=== PATIENT | male | born 1955 | race Caucasian/White ===

== ENCOUNTER 2019-02-05 08:21 | Outpatient (CLI) | payer OTHER ==
--- NOTE | 2019-02-05 09:58 | HP ---
HISTORY OF PRESENT ILLNESS: Mr. Lenin Morales is a very pleasant 63-year-old gentleman, who presents [facility] for evaluation of 2 wounds of the right lower extremity. The wound of the right lower leg began in early October of last year after the patient ran into a #10 tub filled with water at night. The patient states that 1 week later he dropped an object onto his foot resulting in an ulceration over the dorsum of the right foot. The patient states that he was seen by Dr. Grant and placed on a course of ciprofloxacin. At this time, the patient was referred to the [facility]ound Center for further evaluation and treatment. PAST MEDICAL HISTORY: 1. Diabetes mellitus. 2. Hypertension. 3. Thyroid disorder. PAST SURGICAL HISTORY: Negative. MEDICATIONS: 1. Humulin 70/30. 2. Metformin. 3. Lovastatin. 4. Jardiance. 5. Levothyroxine. 6. Ciprofloxacin. ALLERGIES: NO KNOWN DIAGNOSED ALLERGIES. SOCIAL HISTORY: Social history is negative for tobacco or EtOH use. FAMILY HISTORY: Family history is significant for diabetes mellitus. The patient states that his father and brother were both diagnosed with diabetes mellitus. Family history is also significant for coronary artery disease. The patient states that his father was diagnosed with coronary artery disease. PHYSICAL EXAMINATION: VITAL SIGNS: Stable, afebrile. GENERAL: A 63-year-old gentleman, sitting on chair in examination room, in no acute distress. HEENT: Normocephalic, atraumatic. NECK: No nuchal rigidity. CHEST: Clear to auscultation. CARDIOVASCULAR: Regular rate and rhythm. ABDOMEN: Soft. EXTREMITIES: An ulceration over the right lower leg is present, which measures approximately 3.3 x 2.0 cm. Eschar is present over the wound. No purulent drainage is associated with the wound. No cellulitis of the right lower leg is appreciated. No maceration of the skin of the periwound is noted. A dorsalis pedis pulse is palpable on the right. No significant edema of the right lower extremity is appreciated on exam today. An ulceration over the dorsum of the right foot is present, which measures approximately 1.1 x 1.4 cm. Eschar is present over the wound. No purulent drainage is associated with the wound. No erythema of the skin surrounding the wound is present. No maceration of the skin of the periwound is noted. NEURO: Grossly nonfocal. ASSESSMENT AND PLAN: 1. Wounds of right lower extremity, as described above. Dressing changes of Medihoney, 4 x 4's, Kerlix, and Coban will be initiated today. These dressing changes are to be performed on a daily basis after cleansing and irrigation. The patient will be performing his own dressing changes. The patient is to continue ciprofloxacin as previously prescribed. I will see Mr. Morales again in 2 weeks. The patient understands and is in agreement with the preceding treatment plan. 2. Diabetes mellitus. The patient's Accu-Chek in clinic today is 107. The patient has been told that for optimal wound healing his blood glucoses should remain below 150. 3. Hypertension. 4. Hypothyroidism. Job ID: [id number]
[2019-02-05] MEDS ORDERED: Sodium Chloride 0.9% 15 ML NEB ONE (18:00)
== END 2019-02-05 08:22 | disposition home or self-care (01) ==
LOC: WCC 08:21
PROVIDERS: ATTEND Family Medicine
DX: S81.801D Unspecified open wound, right lower leg, subsequent encounter (principal); I10 Essential (primary) hypertension; E11.9 Type 2 diabetes mellitus without complications; E03.9 Hypothyroidism, unspecified
CPT/HCPCS: 97602; 99203; A4218; G0463

== ENCOUNTER 2019-02-19 07:57 | Outpatient (CLI) | payer OTHER ==
--- NOTE | 2019-02-19 09:24 | PRG ---
DATE OF SERVICE: 02/19/2019 HISTORY: Mr. Lenin Morales is a very pleasant 64-year-old gentleman, who presents to the [facility] for evaluation of 2 wounds of the right lower extremity. The wound of the right lower leg began in early October of last year after the patient ran into a #10 tub filled with water at night. The patient stated that 1 week later he dropped an object on to his foot resulting in an ulceration over the dorsum of the right foot. The patient stated that he was seen by Dr. Grant and placed on a course of ciprofloxacin. At this time, the patient was referred to the [facility]ound Center for further evaluation and treatment. Since the patient's last visit, Mr. Morales has been receiving dressing changes of Medihoney. He states that the dressing changes of Medihoney are associated with pain, which is almost incapacitating. PHYSICAL EXAMINATION: VITAL SIGNS: Temperature 97.9, pulse 78, respirations 17, and blood pressure 196/104. EXTREMITIES: An ulceration over the right lower leg is present, which measures approximately 3.2 x 2.0 cm. The dimensions of the wound at the time of the patient's last visit were approximately 3.3 x 2.0 cm. Some eschar is present over the wound bed, but much less than at the time of the patient's last visit. No purulent drainage is associated with the wound. No cellulitis of the right lower leg is appreciated. No maceration of the skin of the periwound is noted. A dorsalis pedis pulse is palpable on the right. No significant edema of the right lower extremity is present on exam today. An ulceration over the dorsum of the right foot is present, which measures approximately 1.0 x 1.3 cm. The dimensions of the wound at the time of the patient's last visit were approximately 1.1 x 1.4 cm. No eschar is present over the wound bed, as was present at the time of the patient's last visit. No purulent drainage is associated with the wound. No erythema of the skin surrounding the wound is present. No maceration of the skin of the periwound is noted. LABORATORY DATA: Accu-Chek 79. ASSESSMENT AND PLAN: 1. Wounds of right lower extremity as described above. Dressing changes of PluroGel and gauze will be initiated today. Coban or paper tape will be utilized at the time of dressing changes as needed. These dressing changes are to be performed on a daily basis after cleansing and irrigation. The patient will continue to perform his own dressing changes. I will see Mr. Morales again in approximately 2 weeks. 2. Diabetes mellitus. The patient's Accu-Chek in clinic today is 79. The patient has been reminded that for optimal wound healing his blood glucoses should remain below 150. 3. Hypertension. 4. Hypothyroidism. Job ID: [id number]
[2019-02-19] MEDS ORDERED: Sodium Chloride 0.9% 15 ML NEB ONE (18:00)
== END 2019-02-19 07:58 | disposition home or self-care (01) ==
LOC: WCC 07:57
PROVIDERS: ATTEND Family Medicine
DX: E11.622 Type 2 diabetes mellitus with other skin ulcer (principal); L97.919 Non-pressure chronic ulcer of unspecified part of right lower leg with unspecified severity; I10 Essential (primary) hypertension; E03.9 Hypothyroidism, unspecified
CPT/HCPCS: A4218

== ENCOUNTER 2019-03-12 08:07 | Outpatient (CLI) | payer OTHER ==
[2019-03-12 09:18] LABS: Glucose 75 mg/dL (80-115)
--- NOTE | 2019-03-12 09:46 | PRG ---
DATE OF SERVICE: 03/12/2019 HISTORY: Mr. Lenin Morales is a very pleasant 64-year-old gentleman, who presents to the [facility] for evaluation of 2 wounds of the right lower extremity. The wound of the right lower leg began in early October of last year after the patient ran into a #10 tub filled with water at night. The patient stated that 1 week later he dropped an object onto his foot resulting in an ulceration over the dorsum of the right foot. The patient stated that he was seen by Dr. Grant and placed on a course of ciprofloxacin. At this time, the patient was referred to the Wound Center for further evaluation and treatment. Since the patient's last visit, Mr. Morales has been receiving dressing changes of PluroGel. He states that the dressing changes of PluroGel are less painful than the dressing changes of Medihoney. PHYSICAL EXAMINATION: VITAL SIGNS: Temperature 97.5, pulse 87, blood pressure 194/91. Accu-Chek 54. EXTREMITIES: An ulceration over the right lower leg is present which measures approximately 3.3 x 1.9 cm. The dimensions of the wound at the time of the patient's last visit were approximately 3.2 x 2.0 cm. Again, less eschar is present over the wound bed than at the time of the patient's last visit. No purulent drainage is associated with the wound. No cellulitis of the right lower leg is appreciated. No maceration of the skin of the periwound is noted. A dorsalis pedis pulse is palpable on the right. No significant edema of the right lower extremity is present on exam today. An ulceration over the dorsum of the right foot is present which measures approximately 0.8 x 1.1 cm. The dimensions of the wound at the time of the patient's last visit were approximately 1.0 x 1.3 cm. No purulent drainage is associated with the wound. No erythema of the skin surrounding the wound is present. No maceration of the skin of the periwound is noted. ASSESSMENT AND PLAN: 1. Wounds of right lower extremity as described above. Dressing changes of PluroGel and gauze will be continued on a daily basis after cleansing and irrigation. The patient will continue to perform his own dressing changes. Coban or paper tape will be utilized at the time of dressing changes as needed. I will see Mr. Morales again in 4 weeks. 2. Diabetes mellitus. The patient's Accu-Chek in clinic today is 54. The patient has been given orange juice. 3. Hypertension. 4. Hypothyroidism. Job ID: [id number]
[2019-03-12] MEDS ORDERED: Lidocaine 2% Jelly 5 ML TUBE ONE (14:56)
[2019-03-12] MEDS ORDERED: Sodium Chloride 0.9% 15 ML NEB ONE (14:56)
== END 2019-03-12 08:08 | disposition home or self-care (01) ==
LOC: WCC 08:07
PROVIDERS: ATTEND Family Medicine
DX: E11.621 Type 2 diabetes mellitus with foot ulcer (principal); L97.519 Non-pressure chronic ulcer of other part of right foot with unspecified severity; I10 Essential (primary) hypertension; E03.9 Hypothyroidism, unspecified
CPT/HCPCS: 36416; 82947

== ENCOUNTER 2019-04-09 08:44 | Outpatient (CLI) | payer OTHER ==
--- NOTE | 2019-04-09 09:51 | PRG ---
DATE OF SERVICE: 04/09/2019 HISTORY: Mr. Lenin Morales is a very pleasant 64-year-old gentleman, who presents to the [facility] for evaluation of 2 wounds of the right lower extremity. The wound of the right lower leg began in early October of last year after the patient ran into an #10 tub filled with water at night. The patient stated that 1 week later he dropped an object on to his foot resulting in ulceration over the dorsum of the right foot. The patient stated that he was seen by Dr. Grant and placed on a course of ciprofloxacin. At this time, the patient was referred to the Wound Center for further evaluation and treatment. Since the patient's last visit, Mr. Morales has been receiving dressing changes of PluroGel. He stated previously that the dressing changes of PluroGel are less painful than the dressing changes of Medihoney. Also since the patient's last visit, Mr. Morales states that he underwent stent placement x3 by Dr. Banuelos at [facility]. 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 PHYSICAL EXAMINATION: VITAL SIGNS: Temperature 98.4, pulse 88, respirations 20, and blood pressure 144/83. EXTREMITIES: An ulceration over the right lower leg is present, which measures approximately 3.5 x 1.8 cm. The dimensions of the wound at the time of the patient's last visit were approximately 3.3 x 1.9 cm. No purulent drainage is associated with the wound. No cellulitis of the right lower leg is appreciated. No maceration of the skin of the periwound is noted. A dorsalis pedis pulse is palpable on the right. No significant edema of the right lower extremity is present on exam today. An ulceration over the dorsum of the right foot is present, which measures approximately 0.7 x 1.2 cm. The dimensions of the wound at the time of the patient's last visit were approximately 0.8 x 1.1 cm. No purulent drainage is associated with the wound. No erythema of the skin surrounding the wound is present. No maceration of the skin of the periwound is noted. LABORATORY DATA: Accu-Chek 111. ASSESSMENT AND PLAN: 1. Wounds of right lower extremity as described above. Dressing changes of PluroGel and gauze will be continued on a daily basis after cleansing and irrigation. The patient will continue to perform his own dressing changes. Coban paper tape will be utilized at the time of dressing changes as needed. The patient states he will contact the clinic in order to schedule his next followup appointment. 2. Diabetes mellitus. The patient's Accu-Chek in clinic today is 111. The patient has been reminded that for optimal wound healing his blood glucoses should remain below 150. 3. Hypertension. 4. Hypothyroidism. Job ID: [id number]
[2019-04-09] MEDS ORDERED: Sodium Chloride 0.9% 15 ML NEB ONE ×2 (15:00)
[2019-04-09] MEDS ORDERED: Lidocaine 4% Topical Sol 50 ML BOT ONE (15:00)
[2019-04-09] MEDS ORDERED: Lidocaine 2% PF 100 mg/5 ml Syringe ONE (15:00)
== END 2019-04-09 08:45 | disposition home or self-care (01) ==
LOC: WCC 08:44
PROVIDERS: ATTEND Family Medicine
DX: E11.622 Type 2 diabetes mellitus with other skin ulcer (principal); L97.919 Non-pressure chronic ulcer of unspecified part of right lower leg with unspecified severity; I10 Essential (primary) hypertension; E03.9 Hypothyroidism, unspecified
CPT/HCPCS: 97602; A4218; J2001

== ENCOUNTER 2025-09-16 05:39 | Inpatient (IN) | payer MEDICARE ==
[2025-09-16] MEDS ORDERED: Famotidine/PF 20 mg/2ml Vial ONE (06:51)
[2025-09-16] MEDS ORDERED: CEFAZOLIN 2 GM VIAL ONE ×2 (06:51→18:50)
[2025-09-16] MEDS ORDERED: Lidocaine 2% 6 ML (Jelly) SYR ONE (06:58)
[2025-09-16] MEDS ORDERED: Lidocaine 1% PF 5 ML VIAL ONE (06:59)
[2025-09-16] MEDS ORDERED: PHENYLEPHRINE-NS 100 MCG/ML 10 ML SYRINGE ONE ×3 (06:59→10:55)
[2025-09-16] MEDS ORDERED: SUCCINYLCHOLINE/SOD CL,ISO/PF 200 MG/10 ML SYRINGE FS ONE (06:59)
[2025-09-16] MEDS ORDERED: fentaNYL PF 100 MCG/2 ML SYRINGE ONE (06:59)
[2025-09-16] MEDS ORDERED: Glycopyrrolate 0.2 MG/ML 5 ML SYRINGE ONE (06:59)
[2025-09-16] MEDS ORDERED: PROPOFOL 20 ML ONE (06:59)
[2025-09-16] MEDS ORDERED: Rocuronium Bromide 10 MG/ML (10ML VIAL) ONE (06:59)
[2025-09-16] MEDS ORDERED: Ondansetron PF 4 MG/2 ML Vial ONE (06:59)
[2025-09-16] MEDS ORDERED: Bupivacaine 0.25% HCL 30 ML VIAL ONE (07:06)
[2025-09-16] MEDS ORDERED: HYDROmorphone 2 MG/ML VIAL ONE (07:20)
[2025-09-16] MEDS ORDERED: Communication Order-Pharmacy FS SCH (11:30)
[2025-09-16] MEDS ORDERED: HYDROmorphone 0.5 MG/0.5 ML SYRINGE ONE ×4 (12:31→18:07)
[2025-09-16] MEDS: TETANUS, DIPHTHERIA TOX,ADULT (TDVAX) 0.5 ML VIAL IM ONE (20:06)
[2025-09-16] MEDS: HumuLIN 70/30 100 Unit/ml 10 ml Vial SC SCH (20:06)
[2025-09-16] MEDS: Ferrous Sulfate 325 MG TAB PO SCH (20:07)
[2025-09-16] MEDS: metFORMIN 500 MG TAB PO SCH (20:07)
[2025-09-16 20:11] VITALS: BMI 27.4
[2025-09-16] MEDS ORDERED: Non-Formulary Item 1 EACH (Cinnamon Bark [Cinnamon] 500 MG Capsule) PO SCH (21:00)
[2025-09-16] MEDS: HYDROcodone/Acetaminophen 10/325 mg Tablet PO PRN (21:36)
[2025-09-16] MEDS: Aspirin 81 mg Enteric Coated Tablet PO SCH (21:38)
[2025-09-16] MEDS ORDERED: Dextrose 50% Abboject 50 ML SYRINGE SLOW IVP PRN (22:31)
[2025-09-16] MEDS ORDERED: Glucagon 1 MG/ML KIT IM PRN (22:31)
[2025-09-18] MEDS: Acetaminophen 325 MG TAB PO PRN (01:19)
[2025-09-18 05:27] LABS: #Basophils 0.03 10x3/uL (0.0-0.2); #Eosinophils 0.19 10x3/uL (0.0-0.7); #Monocytes 1.48 10x3/uL (0.11-0.59); #Neutrophils 7.12 10x3/uL (1.40-6.50); %Basophils 0.3 % (0.0-1.0); %Eosinophils 1.8 % (0.0-10.0); %Lymphocytes 17.6 % (21.0-51.0); %Monocytes 13.8 % (0.0-10.0); %Neutrophils 66.2 % (42.0-75.0); Hematocrit 32.8 % (42.0-52.0); Hemoglobin 10.8 g/dL (14.0-18.0); Mean Corpuscular Hemoglobin 30.9 pg (27.0-31.0); Mean Corpuscular Volume 94.0 fL (78.0-98.0); Platelet Count 145 10x3/uL (130-400); Red Blood Cell (RBC) Count 3.49 mill/uL (4.70-6.10); White Blood Cell (WBC) Count 10.74 10x3/uL (4.8-10.8)
[2025-09-18 05:44] LABS: ALT (SGPT) 10 U/L (Less than 45); AST (SGOT) 21 U/L (11-34); Albumin 2.8 g/dL (3.1-4.5); Alkaline Phosphatase 45 U/L (40-110); Anion Gap 10 mmol/L (10-20); BUN (Urea Nitrogen) 11 mg/dL (8.4-25.7); Bilirubin, Total 0.5 mg/dL (0.3-1.2); Calc. Creatinine Clearance 91 mL/min (70-130); Calcium 8.7 mg/dL (7.8-10.44); Carbon Dioxide 27 mmol/L (23-31); Chloride 105 mmol/L (98-107); Globulin 2.4 g/dL (2.4-3.5); Glucose 93 mg/dL (80-115); Potassium 4.0 mmol/L (3.5-5.1); Sodium 138 mmol/L (136-145)
[2025-09-18] MEDS ORDERED: Iopamidol 370 76% 100 ML VIAL ONE (08:11)
[2025-09-18 11:38] LABS: Free T4 (Free Thyroxine) 1.8 ng/dL (0.70-1.48); Thyroid Stimulating Hormone 0.4512 uIU/mL (0.35-4.94)
[2025-09-18] MEDS: Senokot 8.6 MG TAB PO SCH (12:12)
[2025-09-18 12:50] LABS: CAUTI Indications for Culture Fever or rigors; Glucose, Urine (Dipstick) Normal (Negative); Leukocyte 500 Leu/uL (Negative); Protein, Urine (Dipstick) 20 mg/dL (Neg-Trace); Specific Gravity, Urine 1.027 (1.002-1.036); WBC/HPF Greater than 50 HPF (0-3)
[2025-09-18 13:00] LABS: Bacteria/HPF 1+ HPF (None Seen)
[2025-09-18 13:02] LABS: Urine Culture Reflex Yes Yes
[2025-09-18] MEDS ORDERED: cefTRIAXone\\ROCEPHIN 2 GM in Sodium Chloride 0.9% 100 ML IVPB SCH (17:00)
[2025-09-18] MEDS: Azithromycin 500 MG in Sodium Chloride 0.9% 250 ML 250 ML IVPB SCH (17:01)
[2025-09-18] MEDS ORDERED: Simethicone Chewable 80 MG TAB PO PRN (18:21)
[2025-09-19] MEDS: cefTRIAXone\\ROCEPHIN 2 GM in Sodium Chloride 0.9% 100 ML IVPB SCH (00:27)
[2025-09-19 08:44] LABS: #Basophils 0.03 10x3/uL (0.0-0.2); #Eosinophils 0.10 10x3/uL (0.0-0.7); #Monocytes 0.99 10x3/uL (0.11-0.59); #Neutrophils 6.94 10x3/uL (1.40-6.50); %Basophils 0.3 % (0.0-1.0); %Eosinophils 1.0 % (0.0-10.0); %Lymphocytes 16.3 % (21.0-51.0); %Monocytes 10.2 % (0.0-10.0); %Neutrophils 71.8 % (42.0-75.0); Hematocrit 33.7 % (42.0-52.0); Hemoglobin 10.7 g/dL (14.0-18.0); Mean Corpuscular Hemoglobin 30.2 pg (27.0-31.0); Mean Corpuscular Volume 95.2 fL (78.0-98.0); Platelet Count 169 10x3/uL (130-400); Red Blood Cell (RBC) Count 3.54 mill/uL (4.70-6.10); White Blood Cell (WBC) Count 9.68 10x3/uL (4.8-10.8)
[2025-09-19] MEDS: Senokot 8.6 MG TAB PO SCH (10:51)
[2025-09-19 11:39] VITALS: TEMP 98
[2025-09-19 15:48] VITALS: BP 133/76
== END 2025-09-19 19:00 | disposition home or self-care (01) | DRG 426 ==
LOC: SURG A 05:39
PROVIDERS: ADMIT Orthopaedic Surgery; ATTEND Orthopaedic Surgery
PROC: 0SG00AJ Fusion of Lumbar Vertebral Joint with Interbody Fusion Device, Posterior Approach, Anterior Column, Open Approach (ICD-10-PCS; principal; 2025-09-16)
PROC: 0SG3071 Fusion of Lumbosacral Joint with Autologous Tissue Substitute, Posterior Approach, Posterior Column, Open Approach (ICD-10-PCS; 2025-09-16)
PROC: 01NB0ZZ Release Lumbar Nerve, Open Approach (ICD-10-PCS; 2025-09-16)
PROC: 01NR0ZZ Release Sacral Nerve, Open Approach (ICD-10-PCS; 2025-09-16)
PROC: 3E0234Z Introduction of Serum, Toxoid and Vaccine into Muscle, Percutaneous Approach (ICD-10-PCS; 2025-09-16)
PROC: 3E033XZ Introduction of Vasopressor into Peripheral Vein, Percutaneous Approach (ICD-10-PCS; 2025-09-16)
PROC: 0SG30AJ Fusion of Lumbosacral Joint with Interbody Fusion Device, Posterior Approach, Anterior Column, Open Approach (ICD-10-PCS; 2025-09-16)
PROC: 0SG0071 Fusion of Lumbar Vertebral Joint with Autologous Tissue Substitute, Posterior Approach, Posterior Column, Open Approach (ICD-10-PCS; 2025-09-16)
DX: M48.07 Spinal stenosis, lumbosacral region (principal); J18.9 Pneumonia, unspecified organism; E11.9 Type 2 diabetes mellitus without complications; E03.9 Hypothyroidism, unspecified; E78.5 Hyperlipidemia, unspecified; I10 Essential (primary) hypertension; I25.10 Atherosclerotic heart disease of native coronary artery without angina pectoris; Z98.890 Other specified postprocedural states; Z88.8 Allergy status to other drugs, medicaments and biological substances; M54.17 Radiculopathy, lumbosacral region; M43.17 Spondylolisthesis, lumbosacral region; I35.0 Nonrheumatic aortic (valve) stenosis; R50.9 Fever, unspecified; Z79.899 Other long term (current) drug therapy; Z79.890 Hormone replacement therapy
CPT/HCPCS: 36415; 36416; 71275; 72100; 80053; 81001; 84145; 84439; 84443; 85025; 87086; 93005; 93010; A4314; C1713; C1889; J0169; J0456; J0665; J0696; J1100; J1171; J1308; J1815; J2250; J2270; J2405; J2704; J3010; J7050; Q9967

== ENCOUNTER 2025-10-24 09:30 | Outpatient (CLI) | payer MEDICARE | END 2025-10-24 09:31 | disposition home or self-care (01) | LOC: SCSRAD 09:30 | PROVIDERS: ATTEND Orthopaedic Surgery | DX: M54.50 Low back pain, unspecified (principal); Z98.890 Other specified postprocedural states | CPT/HCPCS: 72100 ==